=== PATIENT | female | born 1945 | race Caucasian/White ===

== ENCOUNTER 2016-08-20 05:36 | Day surgery (SDC) | payer MEDICARE, MEDICAID ==
--- NOTE | 2016-08-17 10:04 | History & Physical ---
ADMIT DATE: 08/13/2016 CHIEF COMPLAINT: Medical evaluation and clearance for an elective podiatry surgery secondary to left foot pain. HISTORY OF PRESENT ILLNESS: This is a 70-year-old female with history of hypertension, noted to have hyperglycemia in the past, has been complaining of left foot pain. The patient is scheduled for elective surgery at [facility] on 08/20/2016. The patient denies any chest pain, shortness of breath. Able to walk several blocks, only limited by pain in the left foot. The patient is very active. PAST MEDICAL HISTORY: As mentioned in history of present illness. PAST SURGICAL HISTORY: Status post left foot surgery back in 03/2014. ALLERGIES: Previously was allergic to aspirin, ____ it bothers her stomach. Codeine she is able to take, and as well as Naprosyn because it bothers her stomach so essentially no adverse reactions similar to anaphylactic. MEDICATIONS: Tylenol ____. FAMILY HISTORY: Denies diabetes or coronary artery disease. SOCIAL HISTORY: Denies tobacco, alcohol, or intravenous drug use. The patient is single. The patient has 2 grown children. 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 REVIEW OF SYSTEMS: GENERAL: The patient denies any increased general symptoms. HEENT: No blurred vision or pain. LUNGS: ____ COPD or asthma. HEART: She was told that had hypertension in the past, but not taking any medication. ABDOMEN: No nausea, vomiting, or pain. GENITOURINARY: The patient denies any increased frequency or dysuria. NEUROLOGIC: No headache, seizure, or syncope. PSYCHIATRIC: As stated above. PHYSICAL EXAMINATION: VITAL SIGNS: Blood pressure 100/60, respirations 18, pulse 80, temperature 98.1. GENERAL: Elderly female, who appears her stated age. The patient was seen and interviewed with a laborer cutting tool. NECK: Supple. No mass. LUNGS: Equal breath sounds, otherwise clear to auscultation. HEART: Regular rate and rhythm. No appreciable murmurs. ABDOMEN: Soft, nontender. Positive bowel sounds ____. EXTREMITIES: No clubbing, cyanosis. Possible foot bunion. NEUROLOGIC: Alert, oriented, moving all 4 extremities. Cranial nerve ____ intact. Gait is within normal range. LABORATORY DATA: All pending, ____ UA, chest x-ray, and EKG. ASSESSMENT AND PLAN: Left foot pain, history of elevated blood sugar, history of elevated blood pressure, the above diagnosis seems to be under control, not taking any medication. We will review the patient's laboratory, CBC, ____ and urinalysis. The patient with a good functional capacity. This should place the patient at a low cardiac risk for any intraoperative complications. The patient is medically cleared. The patient to follow up with her regular physician upon discharge. [facility]# [id number]
[2016-08-20 06:04] LABS: % BASOPHILS 0.6 % (0.0-2.0); % EOSINOPHILS 4.7 % (0.0-5.0); % LYMPHOCYTES 28.3 % (20.0-50.0); % MONOCYTES 6.2 % (2.0-10.0); % NEUTROPHILS 60.2 % (40.0-80.0); HEMATOCRIT 39.4 % (35.0-45.0); HEMOGLOBIN 13.3 gm/dL (11.7-16.1); MEAN CELL VOLUME 87.7 fl (81-100); MEAN CORPUSCULAR HEMOGLOBIN 29.6 pg (27.0-31.0); MEAN CORPUSCULAR HGB CONC 33.7 pg (28.0-36.0); MEAN PLATELET VOLUME 6.6 fl; NEUTROPHILE ABSOLUTE 2.7 Th/cmm (1.8-8.0); PLATELET COUNT 267 Th/cmm (150-400); RED CELL DISTRIBUTION WIDTH 12.2 % (11.5-20.0)
[2016-08-20 06:09] LABS: URINE BILIRUBIN NEGATIVE (NEGATIVE); URINE BLOOD TRACE (NEGATIVE); URINE COLOR YELLOW; URINE GLUCOSE (UA) NEGATIVE (NEGATIVE); URINE KETONE NEGATIVE (NEGATIVE); URINE PROTEIN NEGATIVE (NEGATIVE); URINE UROBILINOGEN 0.2 E.U./dL (0.2 - 1.0)
[2016-08-20 06:12] LABS: WHITE BLOOD COUNT 4.4 Th/cmm (4.8-10.8)
[2016-08-20 06:20] LABS: INR 0.9 (0.5-1.4); PROTHROMBIN TIME (TEST) 9.3 SECONDS (9.5-11.5)
[2016-08-20 06:22] LABS: ANION GAP 9.9 (7.0-16.0); BUN - UREA NITROGEN 25 mg/dL (7-25); BUN/CREATININE RATIO 35.7; CALCIUM SERUM 10.1 mg/dL (8.6-10.3); CARBON DIOXIDE 27.5 mEq/L (21.0-31.0); CHLORIDE 105 mEq/L (98-107); CREATININE - SERUM 0.7 mg/dL (0.6-1.2); GLUCOSE 96 mg/dL (70-105); POTASSIUM SERUM 4.4 mEq/L (3.5-5.1); SODIUM SERUM 138 mEq/L (136-145)
[2016-08-20 06:32] LABS: URINE BACTERIA NONE SEEN /hpf (NONE SEEN); URINE EPITHELIAL CELLS FEW /lpf (FEW)
[2016-08-20] MEDS ORDERED: Bupivacaine 0.25% W/Ep 10 mL Vial ONE (07:19)
[2016-08-20] MEDS ORDERED: Dexamethasone Sodium Phos 4 mg/mL Vial ONE (07:20)
[2016-08-20] MEDS ORDERED: Bupivacaine 0.25% 10 mL Vial ONE (07:22)
[2016-08-20] MEDS ORDERED: Lidocaine 2% Vial 20 mL Vial ONE (07:23)
[2016-08-20] MEDS ORDERED: Clindamycin 600mg/50mL 600 MG/50 ML BAG IV ONE (07:48)
[2016-08-20] MEDS ORDERED: Midazolam 1mg/ml 2 ml vial IV ONE (08:12)
--- NOTE | 2016-08-20 09:42 | Diagnostic Imaging Report ---
Portable chest x-ray History: Cough Allowing for portable technique the heart size is normal. No focal pulmonary parenchymal processes. No hilar or mediastinal abnormalities. Degenerative changes seen throughout the spine. Impression: No acute abnormalities.
--- NOTE | 2016-08-24 10:31 | Pathology Report ---
[id number] Collection date: 08/20/2016 Surgeon: Dr. Yue Cao Specimen Description: Bunion, left foot. Gross Description: Received in formalin are three portions of maza-white osteocartilaginous tissue with some areas having a dome shaped surface of articular cartilage. Sectioning shows no focal lesions. Workplace Rehabilitation Officer sections are submitted in one cassette following decalcification. Microscopic Description: The histologic sections show portions of benign osteocartilaginous tissue. Diagnosis: Benign osteocartilaginous tissue consistent with clinical impression of bunion, left foot. [facility]# [id number] [facility]
== END 2016-08-20 12:20 | disposition home or self-care (01) ==
LOC: MSII 05:36
PROVIDERS: ATTEND Podiatrist Foot & Ankle Surgery
DX: M20.42 Other hammer toe(s) (acquired), left foot (principal); M20.12 Hallux valgus (acquired), left foot; Z98.890 Other specified postprocedural states; Z88.8 Allergy status to other drugs, medicaments and biological substances; I10 Essential (primary) hypertension
CPT/HCPCS: 36415-UA; 71010-TC; 80048-TC; 81001-TC; 85025-TC; 85610-TC; 88302-TC; 88312-TC; 90799; J1100; J2001; J2250; J2704; J3490; V2790; X6494; Z7610